=== PATIENT | male | born 1965 | race Caucasian/White ===

== ENCOUNTER 2017-10-30 21:45 | Emergency (ER) | payer SELFPAY ==
[~2017-10-30] VITALS: Ht 177.8 cm; Wt 77.7 kg
[2017-10-30 21:52] VITALS: BP 125/83
== END 2017-10-30 23:33 | disposition home or self-care (01) ==
LOC: ED 23:10
DX: K40.91 Unilateral inguinal hernia, without obstruction or gangrene, recurrent (principal)
CPT/HCPCS: 99282

== ENCOUNTER 2017-11-02 18:25 | Emergency (ER) | payer MEDICAID ==
[~2017-11-02] VITALS: Ht 177.8 cm; Wt 76.6 kg
[2017-11-02] MEDS ORDERED: SODIUM CHLORIDE 0.9% 1,000ML IVBOLUS ONE (19:00)
[2017-11-02] MEDS ORDERED: THIAMINE 100MG TABLET PO ONE (19:00)
[2017-11-02] MEDS ORDERED: ONDANSETRON 2MG/ML, 2ML IVPush ONE (19:00)
[2017-11-02 19:06] LABS: BASOPHILS # (AUTO) 0.02 x10^3/uL (0-0.1); BASOPHILS % (AUTO) 0 % (0-1); EOSINOPHILS # (AUTO) 0.02 x10^3/uL (0-0.4); EOSINOPHILS % (AUTO) 0 % (1-7); LYMPHOCYTES # (AUTO) 2.22 x10^3/uL (1-3.4); LYMPHOCYTES % (AUTO) 26 % (22-44); MD NO; MEAN CORPUSCULAR HEMOGLOBIN 32.2 pg (27.5-34.5); MEAN CORPUSCULAR HGB CONC 34.7 g/dL (33.2-36.2); MEAN CORPUSCULAR VOLUME 92.7 fL (81-97); MEAN PLATELET VOLUME 8.1 fL (7.4-10.4); MONOCYTES % (AUTO) 8 % (2-9); NEUTROPHILS # (AUTO) 5.72 x10^3/uL (1.8-6.8); NEUTROPHILS % (AUTO) 66 % (42-75); PLATELET COUNT 213 x10^3/uL (130-400); RED BLOOD COUNT 4.46 x10^6/uL (4.38-5.82); RED CELL DISTRIBUTION WIDTH 13.3 % (9.4-14.8)
[2017-11-02] MEDS ORDERED: ONDANSETRON 2MG/ML, 2ML ONE (19:14)
[2017-11-02] MEDS ORDERED: THIAMINE 100MG TABLET ONE (19:14)
[2017-11-02 19:15] LABS: ALANINE AMINOTRANSFERASE 36 U/L (12-78); ALBUMIN 3.9 g/dL (3.4-5.0); ANION GAP 6 mmol/L (5-15); CALCIUM 8.7 mg/dL (8.5-10.1); CHLORIDE 104 mmol/L (98-107); CREATININE 1.04 mg/dL (0.7-1.3)
[2017-11-02 19:18] LABS: ALKALINE PHOSPHATASE 54 U/L (45-117); BILIRUBIN,TOTAL 1.1 mg/dL (0.2-1.0); TOTAL PROTEIN 7.4 g/dL (6.4-8.2)
[2017-11-02] MEDS ORDERED: MAGNESIUM OXIDE 400 MG TABLET PO ONE (19:30)
[2017-11-02] MEDS ORDERED: POTASSIUM CHLORIDE 20 MEQ TAB.ER.PRT PO ONE (19:30)
[2017-11-02] MEDS ORDERED: MAGNESIUM OXIDE 400 MG TABLET ONE (19:34)
[2017-11-02] MEDS ORDERED: POTASSIUM CHLORIDE 20 MEQ TAB.ER.PRT ONE (19:35)
[2017-11-02 20:33] LABS: AMPHETAMINE SCREEN, URINE Positive (Negative); BARBITURATE SCREEN, URINE Negative (Negative); BENZODIAZEPINE SCREEN, URINE Negative (Negative); CANNABINOID SCREEN, URINE Negative (Negative); COCAINE SCREEN, URINE Negative (Negative); METHADONE SCREEN, URINE Negative (Negative); OPIATE SCREEN, URINE Negative (Negative)
[2017-11-02 21:36] VITALS: BP 144/73
== END 2017-11-02 21:38 | disposition home or self-care (01) ==
LOC: ED 21:32
DX: F10.239 Alcohol dependence with withdrawal, unspecified (principal); K29.20 Alcoholic gastritis without bleeding; E87.6 Hypokalemia; E83.42 Hypomagnesemia; Z79.899 Other long term (current) drug therapy
CPT/HCPCS: 36415; 80053; 80307; 83690; 85025; 96361; 96374; 99285; J2405; J7030